=== PATIENT | male | born 1950 | race Caucasian/White ===

== ENCOUNTER 2021-01-07 18:37 | Emergency (ER) | payer MEDICARE, OTHER ==
[~2021-01-07] VITALS: Ht 177.8 cm; Wt 113.4 kg
[~2021-01-07 18:37] MED LIST: ALFU10TA10 PO; AMLO-489 PO; ASPI-247; ATO40T PO; BUPR75TA4 PO; FINA5TAB4 PO; FLUO20CA19 PO; GABA300C10 PO; LORA10TA6 PO; METO-158 PO; PRIM50TA27 PO; RANI300T PO
[2021-01-07 18:46] VITALS: BP 154/85
== END 2021-01-07 19:49 | disposition home or self-care (01) ==
LOC: EDBD 18:37 → ER 18:39
DX: R09.89 Other specified symptoms and signs involving the circulatory and respiratory systems (principal); I11.0 Hypertensive heart disease with heart failure; I50.9 Heart failure, unspecified; Z79.82 Long term (current) use of aspirin; Z79.899 Other long term (current) drug therapy; Z88.5 Allergy status to narcotic agent
CPT/HCPCS: 71045; 93005